=== PATIENT | male | born 1935 | race Caucasian/White ===

== ENCOUNTER 2023-09-14 11:16 | Day surgery (SDC) | payer MEDICARE, BC ==
[~2023-09-14] VITALS: Ht 193 cm; Wt 104.6 kg
[2023-09-14] VITALS (13 sets, daily range): BP systolic 148–179; BP diastolic 79–115; PULSE 65–84; RESP 11–19; TEMP 98.3; O2SAT 94–100
[2023-09-14] MEDS ORDERED: FERR-39 PO (12:01)
[2023-09-14] MEDS ORDERED: APIX5TAB3 PO (12:01)
[2023-09-14] MEDS ORDERED: FURO20TA4 PO (12:01)
[2023-09-14] MEDS ORDERED: POTA-188 PO (12:01)
[2023-09-14] MEDS ORDERED: AMLO5TAB16 PO (12:01)
[2023-09-14] MEDS ORDERED: LOSA100T58 PO (12:01)
[2023-09-14] MEDS ORDERED: SOTA80TA PO (12:01)
[2023-09-14 12:14] LABS: BASOPHILS % (AUTO) 0.5 % (0-1); EOSINOPHILS # (AUTO) 0.2 X10'3 (0-0.9); EOSINOPHILS % (AUTO) 5.9 % (0-6); HEMATOCRIT 33.6 % (42.0-52.0); HEMOGLOBIN 11.4 g/dl (14.0-17.9); LYMPHOCYTES % (AUTO) 24.2 % (21-51); MEAN CORPUSCULAR HEMOGLOBIN 32.7 PG (27.0-31.0); MEAN CORPUSCULAR HGB CONC 33.9 g/dL (33.0-36.5); MEAN CORPUSCULAR VOLUME 96.6 FL (78-98); MEAN PLATELET VOLUME 7.4 FL (7.4-10.4); MONOCYTES # (AUTO) 0.5 X10'3 (0-0.9); MONOCYTES % (AUTO) 13.6 % (2-12); NEUTROPHILS # (AUTO) 2.2 X10'3 (1.8-7.7); NEUTROPHILS % (AUTO) 55.8 % (42-75); PLATELET COUNT 182 X10'3 (140-440); RED BLOOD COUNT 3.48 X10'6 (4.70-6.10); RED CELL DISTRIBUTION WIDTH 13.8 % (11.5-14.5)
[2023-09-14 12:26] LABS: APTT 37 SECONDS (22-32); INR 1.1 INR; PROTHROMBIN TIME 11.9 SECONDS (9.0-12.0)
[2023-09-14 12:28] LABS: ALANINE AMINOTRANSFERASE 25 U/L (12-78); ALBUMIN 3.1 G/DL (3.4-5.0); ALBUMIN/GLOBULIN RATIO 0.5 (1.1-1.5); ALKALINE PHOSPHATASE 68 IU/L (46-116); ANION GAP 9 (8-16); ASPARTATE AMINO TRANSFERASE 21 U/L (10-37); BILIRUBIN,TOTAL 0.7 MG/DL (0.1-1.0); BLOOD UREA NITROGEN 23 MG/DL (7-18); BUN/CREATININE RATIO 16.7 (10.0-20.0); CALCIUM 9.6 MG/DL (8.5-10.1); CHLORIDE 100 MMOL/L (99-107); CHOLESTEROL 85 MG/DL (0-200); CREATININE 1.38 MG/DL (0.60-1.10); GLUCOSE 92 MG/DL (70-104); HDL CHOLESTEROL 43 MG/DL (35-60); LDL CHOLESTEROL 37 MG/DL (50-100); SODIUM 139 MMOL/L (135-145); TOTAL PROTEIN 9.9 G/DL (6.4-8.2); TRIGLYCERIDES 19 MG/DL (20-135); eCRCL 47 ML/MIN; eGFR 49 ML/MIN
[2023-09-14] MEDS: MIDAZolam 1mg/ml 10ml vial IV ONE (12:39)
[2023-09-14] MEDS: fentaNYL/PF 50MCG/1 ML 2ML syringe IV ONE (12:39)
[2023-09-14] MEDS: normal saline 1000ml 1,000 ML IV SCH (12:39)
== END 2023-09-14 14:05 | disposition home or self-care (01) ==
LOC: SSTAY O 11:16
PROVIDERS: ATTEND Student in an Organized Health Care Education/Training Program
DX: I48.91 Unspecified atrial fibrillation (principal); I49.1 Atrial premature depolarization; I11.0 Hypertensive heart disease with heart failure; I50.9 Heart failure, unspecified; Z79.01 Long term (current) use of anticoagulants
CPT/HCPCS: 36415; 80053; 80061; 85025; 85610; 85730; 92960; 93005; J2250; J3010; J7030

== ENCOUNTER 2024-05-24 09:16 | Inpatient (IN) | payer MEDICARE, BC ==
[~2024-05-24] VITALS: Ht 193 cm; Wt 90.9 kg
[~2024-05-24 09:16] MED LIST: AMLO5TAB16 PO; APIX5TAB3 PO; FERR-39 PO; FURO20TA4 PO; LOSA100T58 PO; POTA-188 PO; SOTA80TA PO
[2024-05-24] MEDS ORDERED: METO25TA6 PO (09:36)
[2024-05-24 10:22] LABS: MAGNESIUM 1.8 MG/DL (1.5-2.4); PRO BRAIN NATRIURETIC PEPTIDE 5320 PG/ML (0-450)
[2024-05-24 10:28] LABS: APTT 50 SECONDS (22-32); INR 1.4 INR; PROTHROMBIN TIME 14.7 SECONDS (9.0-12.0)
[2024-05-24 10:46] LABS: BASOPHILS % (AUTO) 0.4 % (0-1); EOSINOPHILS % (AUTO) 0.1 % (0-6); HEMATOCRIT 31.5 % (42.0-52.0); HEMOGLOBIN 10.8 g/dl (14.0-17.9); LYMPHOCYTES # (AUTO) 0.1 X10'3 (1.1-4.8); LYMPHOCYTES % (AUTO) 2.3 % (21-51); MEAN CORPUSCULAR HEMOGLOBIN 33.6 PG (27.0-31.0); MEAN CORPUSCULAR HGB CONC 34.2 g/dL (33.0-36.5); MEAN CORPUSCULAR VOLUME 98.2 FL (78-98); MEAN PLATELET VOLUME 8.4 FL (7.4-10.4); MONOCYTES % (AUTO) 0.9 % (2-12); NEUTROPHILS # (AUTO) 3.5 X10'3 (1.8-7.7); NEUTROPHILS % (AUTO) 96.3 % (42-75); PLATELET COUNT 140 X10'3 (140-440); RED CELL DISTRIBUTION WIDTH 13.7 % (11.5-14.5); WHITE BLOOD COUNT 3.6 X10'3 (4.5-11.0)
[2024-05-24 11:03] LABS: ALANINE AMINOTRANSFERASE 18 U/L (12-78); ALBUMIN 2.1 G/DL (3.4-5.0); ALBUMIN/GLOBULIN RATIO 0.3 (1.1-1.5); ALKALINE PHOSPHATASE 47 IU/L (46-116); ANION GAP 13 (8-16); ASPARTATE AMINO TRANSFERASE 17 U/L (10-37); BILIRUBIN,TOTAL 3.1 MG/DL (0.1-1.0); BLOOD UREA NITROGEN 55 MG/DL (7-18); BUN/CREATININE RATIO 25.2 (10.0-20.0); CALCIUM 8.6 MG/DL (8.5-10.1); CHLORIDE 94 MMOL/L (99-107); CREATININE 2.18 MG/DL (0.60-1.10); GLUCOSE 98 MG/DL (70-104); POTASSIUM 4.2 MMOL/L (3.5-5.1); SODIUM 127 MMOL/L (135-145); TOTAL CARBON DIOXIDE 19.7 MMOL/L (24-32); TOTAL PROTEIN 8.3 G/DL (6.4-8.2); eCRCL 30 ML/MIN; eGFR 29 ML/MIN
[2024-05-24] MEDS ORDERED: potassium Cl 20 mEq SR tablet PO PRN ×2 (11:45)
[2024-05-24] MEDS ORDERED: potassium Cl 40MEQ/1/2NS 520ml 520 ML IV PRN (11:45)
[2024-05-24] MEDS ORDERED: magnesium sulf-water 4G/100mL 100 ML IV PRN (11:45)
[2024-05-24] MEDS ORDERED: morphine 2 MG/ML inj. syringe IV PRN (11:45)
[2024-05-24] MEDS ORDERED: magnesium Cl slow-release 64mg tablet PO PRN (11:45)
[2024-05-24] MEDS ORDERED: ondansetron/PF 4mg/2ml inj IV PRN (11:45)
[2024-05-24] MEDS ORDERED: acetaminophen 325mg tablet PO PRN (11:45)
[2024-05-24] MEDS ORDERED: HYDROcodone/acetaminophen 5mg/325mg tablet PO PRN (11:45)
[2024-05-24] MEDS ORDERED: magnesium sulf-water 2g/50mL 50 ML IV PRN (11:45)
[2024-05-24] MEDS: CefTRIAXone 2gm/D5W 50ml BAG 50 ML IV SCH (12:40)
[2024-05-24] MEDS: normal saline 1000ml 1,000 ML IV SCH (12:40)
[2024-05-24] MEDS: metoprolol tartrate 25mg tablet PO SCH ×2 (13:32→21:08)
[2024-05-24 18:00] VITALS: BP 153/84; PULSE 116; RESP 18; TEMP 98; O2SAT 95
[2024-05-24 20:00] VITALS: RESP 16; O2SAT 95
[2024-05-24] MEDS: heparin, porcine 5000 units/ml vial SQ SCH (20:21)
[2024-05-24 21:00] VITALS: BP 130/76; PULSE 112
[2024-05-24 23:00] VITALS: BP 140/87; PULSE 113; RESP 18; TEMP 97.8; O2SAT 98
[2024-05-25] VITALS (9 sets, daily range): BP systolic 111–153; BP diastolic 55–97; PULSE 86–108; RESP 12–25; TEMP 96.2–98.5; O2SAT 95–99
[2024-05-25 06:43] LABS: EOSINOPHILS % (AUTO) 0 % (0-6); HEMOGLOBIN 10.7 g/dl (14.0-17.9); LYMPHOCYTES # (AUTO) 0.1 X10'3 (1.1-4.8); RED CELL DISTRIBUTION WIDTH 13.6 % (11.5-14.5)
[2024-05-25 06:46] LABS: BASOPHILS % (AUTO) 0.1 % (0-1); HEMATOCRIT 30.5 % (42.0-52.0); LYMPHOCYTES % (AUTO) 2.1 % (21-51); MEAN CORPUSCULAR HEMOGLOBIN 34.1 PG (27.0-31.0); MEAN CORPUSCULAR HGB CONC 35.1 g/dL (33.0-36.5); MEAN CORPUSCULAR VOLUME 97.2 FL (78-98); MEAN PLATELET VOLUME 8.8 FL (7.4-10.4); MONOCYTES # (AUTO) 0.1 X10'3 (0-0.9); MONOCYTES % (AUTO) 2.9 % (2-12); NEUTROPHILS # (AUTO) 4.8 X10'3 (1.8-7.7); NEUTROPHILS % (AUTO) 94.9 % (42-75); PLATELET COUNT 183 X10'3 (140-440); RED BLOOD COUNT 3.14 X10'6 (4.70-6.10); WHITE BLOOD COUNT 5.1 X10'3 (4.5-11.0)
[2024-05-25 07:19] LABS: ALANINE AMINOTRANSFERASE 21 U/L (12-78); ALBUMIN 1.9 G/DL (3.4-5.0); ALBUMIN/GLOBULIN RATIO 0.3 (1.1-1.5); ALKALINE PHOSPHATASE 49 IU/L (46-116); ANION GAP 13 (8-16); ASPARTATE AMINO TRANSFERASE 27 U/L (10-37); BILIRUBIN,TOTAL 1.9 MG/DL (0.1-1.0); BLOOD UREA NITROGEN 64 MG/DL (7-18); BUN/CREATININE RATIO 28.4 (10.0-20.0); CALCIUM 9.2 MG/DL (8.5-10.1); CHLORIDE 93 MMOL/L (99-107); CREATININE 2.25 MG/DL (0.60-1.10); GLUCOSE 105 MG/DL (70-104); SODIUM 126 MMOL/L (135-145); TOTAL CARBON DIOXIDE 20.4 MMOL/L (24-32); TOTAL PROTEIN 8.6 G/DL (6.4-8.2); eCRCL 29 ML/MIN; eGFR 28 ML/MIN
[2024-05-25] MEDS: azithromycin/NS 500mg/250ml 250 ML IV SCH (08:37)
[2024-05-25] MEDS: albuterol 2.5 MG/3 ML nebule NEB SCH (21:50)
[2024-05-26] VITALS (17 sets, daily range): BP systolic 116–146; BP diastolic 72–94; PULSE 86–109; RESP 16–18; TEMP 97–98.4; O2SAT 89–99
[2024-05-26] MEDS: acetaminophen 325mg tablet PO PRN (03:33)
[2024-05-26 06:08] LABS: BASOPHILS % (AUTO) 0.1 % (0-1); EOSINOPHILS % (AUTO) 0 % (0-6); HEMATOCRIT 29.3 % (42.0-52.0); LYMPHOCYTES # (AUTO) 0.1 X10'3 (1.1-4.8); LYMPHOCYTES % (AUTO) 1.9 % (21-51); MEAN CORPUSCULAR HEMOGLOBIN 33.3 PG (27.0-31.0); MEAN CORPUSCULAR HGB CONC 34.3 g/dL (33.0-36.5); MEAN CORPUSCULAR VOLUME 97.1 FL (78-98); MEAN PLATELET VOLUME 8.3 FL (7.4-10.4); MONOCYTES # (AUTO) 0.2 X10'3 (0-0.9); MONOCYTES % (AUTO) 3.5 % (2-12); NEUTROPHILS # (AUTO) 5.8 X10'3 (1.8-7.7); NEUTROPHILS % (AUTO) 94.5 % (42-75); PLATELET COUNT 191 X10'3 (140-440); RED BLOOD COUNT 3.01 X10'6 (4.70-6.10); RED CELL DISTRIBUTION WIDTH 13.7 % (11.5-14.5); WHITE BLOOD COUNT 6.2 X10'3 (4.5-11.0)
[2024-05-26 06:33] LABS: ALANINE AMINOTRANSFERASE 25 U/L (12-78); ALBUMIN 1.7 G/DL (3.4-5.0); ALBUMIN/GLOBULIN RATIO 0.3 (1.1-1.5); ALKALINE PHOSPHATASE 56 IU/L (46-116); ANION GAP 12 (8-16); ASPARTATE AMINO TRANSFERASE 27 U/L (10-37); BILIRUBIN,TOTAL 1.1 MG/DL (0.1-1.0); BLOOD UREA NITROGEN 66 MG/DL (7-18); BUN/CREATININE RATIO 34.7 (10.0-20.0); CALCIUM 9.1 MG/DL (8.5-10.1); CHLORIDE 98 MMOL/L (99-107); GLUCOSE 97 MG/DL (70-104); POTASSIUM 3.9 MMOL/L (3.5-5.1); SODIUM 131 MMOL/L (135-145); TOTAL CARBON DIOXIDE 21.1 MMOL/L (24-32); TOTAL PROTEIN 7.8 G/DL (6.4-8.2); eCRCL 34 ML/MIN; eGFR 34 ML/MIN
[2024-05-26] MEDS: losartan 50mg tablet PO SCH (07:56)
[2024-05-26] MEDS: furosemide 20 MG/2 ML vial IV ONE (13:54)
[2024-05-26] MEDS ORDERED: acetaminophen 325mg tablet PO PRN (14:00)
[2024-05-26 15:56] LABS: BILIRUBIN,URINE NEGATIVE (Neg); CLARITY,URINE CLEAR (Clear); COLOR,URINE YELLOW (Yellow); GLUCOSE, URINE NEGATIVE (Neg); KETONES,URINE NEGATIVE (Neg); LEUKOCYTE ESTERASE ,URINE NEGATIVE (Neg); NITRITES, URINE NEGATIVE (Neg); OCCULT BLOOD,URINE NEGATIVE (Neg); PROTEIN,URINE TRACE mg/dl (Neg); UROBILINOGEN,URINE 0.2 E.U/dL (0.2-1.0)
[2024-05-26 15:57] LABS: UA COLLECTION TYPE NON-SPECIFIED
[2024-05-26 16:06] LABS: BACTERIA,URINE NONE SEEN /HPF (Neg); MUCUS STRANDS NONE SEEN /LPF (Neg); RBC,URINE NONE SEEN /HPF (0-2); SQUAMOUS EPITHELIAL CELL,UR NONE SEEN /LPF (FEW); WBC,URINE 0-4 /HPF (0-4)
[2024-05-26] MEDS: guaiFENesin ER 600mg tablet PO SCH (20:51)
[2024-05-27] VITALS (10 sets, daily range): BP systolic 122–124; BP diastolic 61–72; PULSE 100–116; RESP 15–20; TEMP 97.4–98.4; O2SAT 88–96
[2024-05-27 07:56] LABS: BASOPHILS % (AUTO) 0.1 % (0-1); EOSINOPHILS % (AUTO) 0.1 % (0-6); HEMATOCRIT 28.7 % (42.0-52.0); HEMOGLOBIN 9.9 g/dl (14.0-17.9); LYMPHOCYTES # (AUTO) 0.1 X10'3 (1.1-4.8); LYMPHOCYTES % (AUTO) 2.8 % (21-51); MEAN CORPUSCULAR HEMOGLOBIN 33.9 PG (27.0-31.0); MEAN CORPUSCULAR HGB CONC 34.5 g/dL (33.0-36.5); MEAN CORPUSCULAR VOLUME 98.2 FL (78-98); MEAN PLATELET VOLUME 8.1 FL (7.4-10.4); MONOCYTES # (AUTO) 0.2 X10'3 (0-0.9); MONOCYTES % (AUTO) 4.3 % (2-12); NEUTROPHILS # (AUTO) 4.2 X10'3 (1.8-7.7); NEUTROPHILS % (AUTO) 92.7 % (42-75); PLATELET COUNT 192 X10'3 (140-440); RED BLOOD COUNT 2.92 X10'6 (4.70-6.10); RED CELL DISTRIBUTION WIDTH 13.6 % (11.5-14.5); WHITE BLOOD COUNT 4.5 X10'3 (4.5-11.0)
[2024-05-27] MEDS: lactose-reduced food (Ensure Enlive) - 237ml bottle PO SCH (08:15)
[2024-05-27 08:20] LABS: ALANINE AMINOTRANSFERASE 34 U/L (12-78); ALBUMIN 1.7 G/DL (3.4-5.0); ALBUMIN/GLOBULIN RATIO 0.3 (1.1-1.5); ALKALINE PHOSPHATASE 77 IU/L (46-116); ANION GAP 10 (8-16); ASPARTATE AMINO TRANSFERASE 43 U/L (10-37); BILIRUBIN,TOTAL 1.4 MG/DL (0.1-1.0); BLOOD UREA NITROGEN 56 MG/DL (7-18); CALCIUM 8.9 MG/DL (8.5-10.1); CHLORIDE 100 MMOL/L (99-107); CREATININE 1.75 MG/DL (0.60-1.10); GLUCOSE 101 MG/DL (70-104); POTASSIUM 3.4 MMOL/L (3.5-5.1); SODIUM 133 MMOL/L (135-145); TOTAL CARBON DIOXIDE 22.7 MMOL/L (24-32); TOTAL PROTEIN 7.9 G/DL (6.4-8.2); eCRCL 37 ML/MIN; eGFR 37 ML/MIN
[2024-05-27] MEDS ORDERED: LEVO-65 PO (09:35)
== END 2024-05-27 15:20 | disposition home or self-care (01) | DRG 871 ==
LOC: ER 09:16 → ED HOLD 11:47 → PCU 3S 16:38
PROVIDERS: ADMIT Internal Medicine; ATTEND Internal Medicine
DX: A41.9 Sepsis, unspecified organism (principal); I21.A1 Myocardial infarction type 2; J18.9 Pneumonia, unspecified organism; J96.01 Acute respiratory failure with hypoxia; R65.21 Severe sepsis with septic shock; N17.9 Acute kidney failure, unspecified; E87.1 Hypo-osmolality and hyponatremia; E87.20 Acidosis, unspecified; I48.20 Chronic atrial fibrillation, unspecified; I11.0 Hypertensive heart disease with heart failure; I50.9 Heart failure, unspecified; N40.0 Benign prostatic hyperplasia without lower urinary tract symptoms; G47.30 Sleep apnea, unspecified; Z79.01 Long term (current) use of anticoagulants; Z79.899 Other long term (current) drug therapy; Z87.891 Personal history of nicotine dependence
CPT/HCPCS: 36415; 71045; 80053; 81001; 83605; 83735; 83880; 84484; 85025; 85610; 85730; 87040; 87081; 93005; 93306; 94640; 94760; 97161; 97530; 99285; A4615; A4620; G0378; J0456; J0696; J1644; J1940; J7030